=== PATIENT | female | born 1945 | race Hispanic/Latino ===

== ENCOUNTER → 2024-08-11 | Outpatient (CLI) | payer OTHER ==
--- NOTE | 2024-08-11 11:41 | HMCIMG ---
US ABDOMINAL COMPLETE REASON: CALCULUS OF BILE DUCT COMPARISON: None FINDINGS: There is normal sonographic appearance of the liver. There are no focal mass lesions. The liver is not enlarged.There is a normal-appearing gallbladder. The common duct appears mildly enlarged at 8 mm. The intrahepatic biliary tree does not appear distended. Kidneys appear normal in size and appearance. There is no evidence of mass, stone or hydronephrosis. Spleen appears normal. Aorta and inferior vena cava are unremarkable. The pancreas appears normal as well. IMPRESSION: 1. Common duct mildly dilated at 8 mm, etiology not identified 2. Otherwise unremarkable exam.
== END | disposition home or self-care (01) ==
LOC: RAH 09:54
PROVIDERS: ATTEND Internal Medicine
DX: K83.8 Other specified diseases of biliary tract (principal); K80.50 Calculus of bile duct without cholangitis or cholecystitis without obstruction
CPT/HCPCS: 76700

== ENCOUNTER 2025-01-21 11:05 | Observation (INO) | payer OTHER ==
[~2025-01-21] VITALS: Ht 152.4 cm; Wt 79.1 kg
[2025-01-21 11:40] LABS: INR <= 0.93 (0.85-1.15)
[2025-01-21 11:41] LABS: CREATINE KINASE, TOTAL 26.0 U/L (21-232); CREATININE 0.6 mg/dL (0.5-1.0); GLOMERULAR FILTR. RATE CALC 92.0 mL/min (>90); GLUCOSE,RANDOM 121.0 mg/dL (70-105); LDL DIRECT 65.0 mg/dL (0-99); SODIUM SERUM 141.0 mmol/L (136-145); UREA NITROGEN, BLOOD 11.0 mg/dL (7-18)
[2025-01-21 11:46] LABS: IMMATURE GRANULOCYTE ABSOLUTE 0.03 K/uL (0-1); NUCLEATED RED BLOOD CELLS 0.0 % (0.0-0.19); PLATELET COUNT (AUTO) 288 K/uL (130-400); RED BLOOD CELL COUNT(AUTO) 3.97 MIL/uL (4.00-5.50); RED CELL DISTRIBUTION WIDTH 12.6 % (11.0-15.5); WHITE BLOOD COUNT (AUTO) 4.9 K/uL (4.8-10.8)
--- NOTE | 2025-01-21 12:12 | EKG ---
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
[2025-01-21 12:35] LABS: APPEARANCE,URINE CLEAR (CLEAR); GLUCOSE, URINE (UA) NEGATIVE (NEGATIVE); LEUKOCYTE ESTERASE ,URINE NEGATIVE Leu/uL (NEGATIVE); NITRATE,URINE NEGATIVE (NEGATIVE); OCCULT BLOOD,URINE NEGATIVE (NEGATIVE)
[2025-01-21 12:37] LABS: ADD UA MICROSCOPIC NO
--- NOTE | 2025-01-21 13:30 | NUR ---
BEDSIDE SWALLOW EVAL COMPLETED. Recommend regular solids, thin liquids and pills whole with liquids as tolerated. Compensatory strategies: 1. sit upright during oral intake CARBON BLOCKS PRESS OPERATOR reviewed results and recommendations with patient and nurse Danyel. CARBON BLOCKS PRESS OPERATOR educated patient on risks and consequences of aspiration. Speech therapy not warranted at this time. All questions answered. Addendum: 01/21/[address]ONNATHAN BARKER Amended: Links added.
--- NOTE | 2025-01-21 13:35 | NUR ---
COGNITIVE-LINGUISTIC EVALUATION COMPLETED. WITHIN FUNCTIONAL LIMITS. EVALUATION: Pt AAOX4. SPEECH, LANGUAGE, AND COGNITIVE LINGUISTICS SKILLS ARE WITHIN FUNCTIONAL LIMITS. Pt REQUESTS WANTS AND NEEDS INDEPENDENTLY WITH CLEAR SPEECH INTELLIGIBILITY DESPITE VERY MINIMAL RIGHT SIDED FACIAL DROOP REPORTED BY FRIEND PRESENT AT TIME OF VISIT HOWEVER FUNCTIONAL. Pt COMMUNICATING AT CONVERSATIONAL LEVEL WITH NO DEFICITS IDENTIFIED AT THIS TIME. Pt COMPLETED COGNITIVE-LINGUISTIC EVALUATION WITH CORRECT AND TIMELY ANSWERS. SPEECH THERAPY NOT WARRANTED. ALL QUESTIONS ANSWERED AT THIS TIME. VITAMIN MANAGER REVIEWED RESULTS AND RECOMMENDATIONS WITH PATIENT AND NURSE MARYSOL. Addendum: 01/21/[address]ONNATHAN BARKER Amended: Links added.
--- NOTE | 2025-01-21 14:14 | HMCIMG ---
EXAM: CR Chest, 1 View. CLINICAL HISTORY: cp COMPARISON: None provided. FINDINGS: LUNGS: There is no mass, infiltrate, or acute pulmonary abnormality. PLEURAL SPACES: No pleural effusion or pneumothorax. MEDIASTINUM: The cardiomediastinal silhouette is within normal limits. BONES: No aggressive appearing osseous lesion seen. IMPRESSION: No acute cardiopulmonary pathology is evident. /[place]
--- NOTE | 2025-01-21 15:26 | ERN ---
ED Note History of Present Illness Stated Complaint: CHEST PAIN Chief Complaint: Weakness Time Seen by MD: 11:15 Dictation: 79-year-old female presenting to the emergency department with chest pain and numbness to the right arm and face started last night worsened this morning also feels anxious no abdominal pain or vomiting. Allergies: Coded Allergies: aspirin (Unverified Allergy, Intermediate, 01/21/25) Past Medical History Past Medical History: High Cholesterol, Hypertension Surgical History: None Review of System Dictation Constitutional: Negative for fever,chills, and weight loss Eyes: Negative for injury, pain,redness, and discharge ENT: Negative for injury,pain or swelling Cardiovascular: per HPI Respiratory: Negative for shortness of breath, cough, and wheezing, Abdomen/GI: Negative for abdominal pain, nausea, vomiting, diarrhea, and constipation Back: Negative for injury and pain : Negative for injury, bleeding and discharge MS/Extremity: Negative for injury and deformity Skin: Negative for rash, and discoloration Neuro: per HPI Initial Vital Sign VS Vital Signs Date Time Temp Pulse Resp B/P (MAP) Pulse Ox O2 Delivery O2 Flow Rate FiO2 01/21/25 11:10 98.6 77 20 160/95 99 0 01/21/25 12:16 Room Air* 21 Physical Exam Dictation General: awake, alert, appears anxious Head/Face: Normocephalic, atraumatic Eyes: PERRL, EOMI, vision at baseline ENT: oral cavity clear, TMs clear, no signs of infection Neck: Trachea midline, supple, no nuchal rigidity Cardiovascular: RRR, normal S1/S2, No MRGs, no JVD Respiratory: CTAB, no respiratory distress, No rales or wheezes Abdomen: Soft, non-tender, non-distended, normal bowel sounds, no guarding or rebound. Skin: Warm, dry, normal turgor, no rash MS/Extremity: Pulses equal, no cyanosis, neurovascular intact, FROM Neuro: COAx4, GCS 15, strength 5/5, CN 2-12 intact, normal cerebellar exam, normal gait, Psych: Normal behavior, mood, and affect normal NIHSS 2 for paresthesias. Results (Laboratory/Radiology) Laboratory/Radiology Laboratory Tests Test 01/21/25 11:22 01/21/25 11:25 01/21/25 12:21 Whole Blood Glucose 128 MG/DL (70-110) H White Blood Count 4.9 K/uL (4.8-10.8) Red Blood Count 3.97 MIL/uL (4.00-5.50) L Hemoglobin 13.1 g/dL (12.0-16.0) Hematocrit 39.2 % (36-48) Mean Corpuscular Volume 98.7 fL (79-99) Mean Corpuscular Hemoglobin 33.0 pg (27.0-33.0) Mean Corpuscular Hemoglobin Concent 33.4 g/dL (32.0-36.0) Red Cell Distribution Width 12.6 % (11.0-15.5) Platelet Count 288 K/uL (130-400) Mean Platelet Volume 9.8 fL (7.5-10.5) Immature Granulocyte % (Auto) 0.6 % (0-1) Neutrophils (%) (Auto) 59.6 % (40.0-77.0) Lymphocytes (%) (Auto) 32.2 % (21.0-51.0) Monocytes (%) (Auto) 6.4 % (3.0-13.0) Eosinophils (%) (Auto) 1.0 % (0.0-8.0) Basophils (%) (Auto) 0.2 % (0.0-5.0) Neutrophils # (Auto) 2.9 K/uL (1.8-7.7) Lymphocytes # (Auto) 1.6 K/uL (1.0-4.8) Monocytes # (Auto) 0.3 K/uL (0.1-1.0) Eosinophils # (Auto) 0.05 K/uL (0.00-0.70) Basophils # (Auto) 0.01 K/uL (0.00-0.20) Absolute Immature Granulocyte (auto 0.03 K/uL (0-1) Nucleated Red Blood Cells 0.0 % (0.0-0.19) Prothrombin Time 9.9 SEC (9.6-11.6) Prothromb Time International Ratio <= 0.93 (0.85-1.15) Activated Partial Thromboplast Time 27.2 SEC (26.3-35.5) Sodium Level 141 mmol/L (136-145) Potassium Level 4.0 mmol/L (3.5-5.1) Chloride Level 103 mmol/L (101-111) Carbon Dioxide Level 30 mmol/L (21-32) Blood Urea Nitrogen 11 mg/dL (7-18) Creatinine 0.6 mg/dL (0.5-1.0) Glomerular Filtration Rate Calc 92 mL/min (>90) Random Glucose 121 mg/dL (70-105) H Total Calcium 9.4 mg/dL (8.5-10.1) Total Creatine Kinase 26 U/L (21-232) Troponin I High Sensitivity 7 ng/L (4-50) LDL Cholesterol 65 mg/dL (0-99) Urine Color COLORLESS (YELLOW) Urine Appearance CLEAR (CLEAR) Urine pH 7.5 (5.0-8.0) Urine Specific [place] 1.006 (1.001-1.031) Urine Protein NEGATIVE mg/dL (NEGATIVE) Urine Glucose (UA) NEGATIVE mg/dL (NEGATIVE) Urine Ketones NEGATIVE mg/dL (NEGATIVE) Urine Occult Blood NEGATIVE (NEGATIVE) Urine Nitrate NEGATIVE (NEGATIVE) Urine Bilirubin NEGATIVE mg/dL (NEGATIVE) Urine Urobilinogen 0.2 mg/dL (0.2-1.0) Urine Leukocyte Esterase NEGATIVE Juan Alberto/uL Labs Reviewed?: Yes EKG Comment: HR 75, NSR, normal intervals, no STEMI ED Course ED Course Orders Procedure Category Date Status Time Bedside Swallow Eval ST 01/21/25 Transmitted 11:14 Cbc With Differential LAB 01/21/25 Complete 11:14 Prothrombin Time With LAB 01/21/25 Complete INR 11:14 Partial LAB 01/21/25 Complete Thromboplastin Time 11:14 Ct Head/Brain W/O CT 01/21/25 Taken Contrast 11:14 Chest 1vw RAD 01/21/25 Resulted 11:14 12 Lead Ekg Tracing- EKG 01/21/25 Complete Technical 11:14 Creatine Kinase, Total LAB 01/21/25 Complete 11:14 Ldl Direct LAB 01/21/25 Complete 11:14 Troponin I High LAB 01/21/25 Complete Sensitivity 11:14 Urinalysis Profile LAB 01/21/25 Complete 11:14 Bedside Glucose CPOE 01/21/25 Transmitted Fingerstick 11:14 Pulse Ox(Continuous) RT 01/21/25 Transmitted 11:14 Complete Nih Stroke CPOE 01/21/25 Transmitted Scale 11:14 Basic Metabolic Panel LAB 01/21/25 Complete 11:14 Vital Signs Date Time Temp Pulse Resp B/P (MAP) Pulse Ox O2 Delivery O2 Flow Rate FiO2 01/21/25 14:34 66 14 156/67 97 Room Air* 0 21 01/21/25 12:16 76 14 184/81 98 Room Air* 0 21 01/21/25 11:10 98.6 77 20 160/95 99 0 Medical Decision Making MDM MDM: Differential diagnosis: Rationale: Tests considered and ordered secondary to shared decision making include: labs, ECG and radiology Previous outside records reviewed: Old ER visits. Risk of complication and/or morbidity or mortality of patient management: None Medications-Per medication reconciliation Need for hospitalization: Patient does meet criteria for hospitalization. Need for emergency major/minor surgery: No There are no social concerns with this patient. Prescription drug management Prescriptions will include symptomatic care Patient's prior external medical records from other ER visits were reviewed by me as indicated. Prior testing and results from previous visits were reviewed. Prior tests were taken into account with medical decision making and resource utilization, independent historian/historians were used to obtain complete medical history. I independently interpreted the test that were performed, results were reviewed by me and considered findings on radiology if ordered. Medical management and examination interpretation discussions were had by me with other qualified healthcare professionals as indicated for the patient's care. 79-year-old female with chest pain and paresthesias to right in face, stable exam initial workup negative admitting for further care and evaluation. NIH STROKE SCALE: NIH STROKE SCALE Response (Comments) Value Level of Consciousness Alert 0 Ask patient month and their age Answers both correct 0 Command to open eyes, make fist and let go Obeys both correct 0 Best gaze (horizontal eye movement) Normal 0 Visual Field Testing Partial Hemianopia 1 Facial Paresis Normal / Symmetrical 0 Motor Function - Left Arm Normal 0 Motor Function - Right Arm Normal 0 Motor Function - Left Leg Normal 0 Motor Function - Right Leg Normal 0 Limb Ataxia No Ataxia 0 Sensory-pin prick to arms, legs, trunk and face Mild to Moderate Decrease 1 Best Language (describe picture, name items and read) No Aphasia 0 Dysarthria (read several words) Normal Articulation 0 Extinction and Inattention Normal 0 Total DX & DISP Disposition: Inpatient Departure Impression: Primary Impression: Unstable angina Additional Impression: Paresthesia Condition: Stable Referrals: ANNA MEEHAN MD (PCP) GARFIELD SANCHES MD Jan 21, 2025 15:26
[2025-01-21 18:15] LABS: CREATINE KINASE, TOTAL 36.0 U/L (21-232)
[2025-01-21] MEDS: ENOXAPARIN SODIUM 80 MG/0.8 ML SQ SCH (20:35)
[2025-01-21 21:34] LABS: CREATINE KINASE, TOTAL 26.0 U/L (21-232)
[2025-01-22] VITALS (7 sets, daily range): BP systolic 117–149; BP diastolic 61–94; PULSE 58–68; RESP 16–21; TEMP 97.6–98.7; O2SAT 96–98
[2025-01-22] MEDS ORDERED: PANT40TA PO (02:39)
[2025-01-22] MEDS ORDERED: ROSUVASTATIN CALCIUM PO (02:39)
[2025-01-22] MEDS ORDERED: AMLO2.5T4 PO (02:39)
[2025-01-22] MEDS ORDERED: LISI10TA24 PO (02:39)
--- NOTE | 2025-01-22 05:12 | HMCIMG ---
EXAM: MR Brain Without IV Contrast CLINICAL HISTORY: Right arm and leg weakness. TECHNIQUE: Multiplanar multi-sequence MRI of the brain. CONTRAST: None. COMPARISON: CT brain of the same date. FINDINGS: Mild generalized brain atrophy. There are multiple discrete as well as confluent T2 and FLAIR hyperintensities in the subcortical and periventricular white matter of the bilateral cerebral hemispheres without restricted diffusion. No evidence of acute cortical infarction, hemorrhage, mass or mass effect. The ventricular system is normal in size, shape, and contour. No hydrocephalus. Partial empty sella. Bilateral basal ganglia, internal capsules and thalami are normal. The brainstem is normal. No abnormal extra-axial fluid collection is present. The marrow signal within the skull base and calvarium is intact. Hyperostosis frontalis interna. Mild bilateral ethmoid sinusitis. The remaining paranasal sinuses and mastoid air cells are clear. IMPRESSION: No acute intracranial abnormality or mass. Mild generalized brain atrophy. Severe chronic small vessel ischemic disease. Partial empty sella. Mild bilateral ethmoid sinusitis. No significant interval change from the CT brain of the same date, within the limitations of cross-modality comparison. /[place]
--- NOTE | 2025-01-22 08:29 | NUR ---
ROUND DR. GIRARD AT BEDSIDE. ORDRED TO RSUME ALL HOME MEDS. SERENITY SCAN AND CAN START HEART HEALTHY DIET AFTER SERENITY SCAN.
[2025-01-22] MEDS: amLODIPine 2.5 MG TAB PO SCH (09:02)
[2025-01-22] MEDS: LISINOPRIL 10 MG TABLET PO SCH (09:02)
--- NOTE | 2025-01-22 09:03 | NUR ---
MORNING MEDICATIONS CALLED NUCLEAR MEDICINE IF OKAY TO GIVE MORNING MEDS DUE T BEING NPO FOR SERENITY SCAN. STATES YES. MORNING MEDS GIVEN.
[2025-01-22 09:52] LABS: CREATINE KINASE, TOTAL 20.0 U/L (21-232)
[2025-01-22] MEDS ORDERED: REGADENOSON 0.4 MG/5 ML PF SYG IVP ONE (10:35)
--- NOTE | 2025-01-22 12:14 | NUR ---
DCP: HOME Pt currently lives with sps in their own home. Pt does not have any DME, home health, or provider services at this time. Pt is able to complete ADLs independently. PCP is Dr. Read and uses Meg for any RX needs. At [place] pt will return home and family/friend can assist with transportation. Addendum: 01/22/25 at 1216 by ZAHIDA NAVA SS Amended: Links added.
--- NOTE | 2025-01-22 16:20 | HMCSR ---
APPROVED REPORT Height: 5 ft 0in Weight: 174 lbs TEST INDICATIONS Chest Pain The imaging protocol used to acquire images was Rest Tc-99m/stress Tc-99m 1 day Consent: The procedure was explained and understood by the patient. Informerd consent was witnessed Yobani Sanders RN First, low dose rest was performed then high dose stress. RESTING DATA: The resting ekg shows: NSR Rest SPECT myocardial perfusion imaging was performed in supine position minutes following the intra venous injection of 10 mCi of Tc-99 Sestamibi. Time of rest injection: Date: 01/22/2025 PHARMACOLOGIC STRESS: Pharmacologic stress test was performed by injecting regadenoson 0.4 mg IV push followed by the intra venous injection of 29 mCi of Tc-99 Sestamibi. Time of stress injection: Date: 01/22/2025 Heart Rate at time of stress injection: 60 bpm. Gated Stress SPECT was performed 60 minutes after stress injection. The images were gated to evaluate regional wall motion and calculate left ventricular ejection fracti on. STRESS DETAILS Reason for Termination: Infusion complete Stress Symptoms: Throat Discomfort, Anxiety, headache Max HR Achieved: 104 bpm % of APMHR Achieved: 85 Max Blood Pressure: 164/76 mmHg Stress ECG: NSR Study quality was good. Lung uptake was Normal. Artifact: No artifact IMPRESSION Normal pharmacologic nuclear stress test. Conclusion there is normal perfusion. TID 1.25. LVEF 65%
--- NOTE | 2025-01-22 22:19 | HP ---
HISTORY OF PRESENT ILLNESS: The patient of Dr. Read, came to the Emergency Room complaining of chest pain with numbness to the right side of the face and arm that was worsening the night before admission. The patient referred as the chest pain has been left side and lasted for a few hours at rest. ALLERGIES: TO ASPIRIN. PAST MEDICAL HISTORY: Hypertension and dyslipidemia. REVIEW OF SYSTEMS: No fever, chills, seizures or loss of consciousness. No diplopia, dysarthria, dysphonia or dysphagia. No cough, wheezes, or rhonchi. Left-sided chest pain at rest for a few hours, not alleviated with [id number] medications. No abdominal pain. No nausea, vomiting, or diarrhea. No dysuria, urgency, or frequency. No rashes, petechiae, or ecchymoses. No hallucinations, delusions, or suicidal ideations. MEDICATIONS: As indicated in the chart. PHYSICAL EXAMINATION: GENERAL: She is currently awake, alert, and oriented in person and place, not in distress. VITAL SIGNS: Blood pressure is 154/66, pulse 68, respiratory rate 15. HEENT: Normocephalic, atraumatic. LUNGS: Clear to auscultation. HEART: S1 and S2 are distant. ABDOMEN: Soft, nontender. EXTREMITIES: No clubbing or cyanosis. NEUROLOGIC: Cranial nerves 2 through 12 are grossly preserved. No gross motor sensory defect. LABORATORY DATA: WBC count 4.9, hemoglobin 13.1, platelets 288. Glucose 113. Troponin on admission was 7, repeated was 9. EKG reported on admission showed non-STEMI, normal sinus rhythm, 75 per minute. ASSESSMENT AND PLAN: * Chest pain. The patient with risk factors. She will be admitted and started on standard treatment. Scheduled her to have a Lexiscan stress test is negative on troponin level x 3. Resume home medications. * Right-sided face and arm paresthesias with negative workup so far. Continue to monitor. Follow up with Dr. Read in a.m. TID: [id number] RECEIPT: [id number]
[2025-01-23 00:37] VITALS: BP 133/76; PULSE 62; RESP 19; TEMP 98
[2025-01-23 04:05] VITALS: BP 121/65; PULSE 63; RESP 18; TEMP 97.7
--- NOTE | 2025-01-23 06:52 | NUR ---
ROUND DR. MEEHAN AT BEDSIDE. ORDERED EKG. PER CAN BE DISCHARGED AFTER. PRESCRIPTIONS WERE WRITTEN.
--- NOTE | 2025-01-23 07:56 | EKG ---
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
[2025-01-23 08:00] VITALS: BP 128/60; PULSE 65; RESP 17; TEMP 97.6
--- NOTE | 2025-01-23 08:19 | NUR ---
EKG DR. MEEHAN AWARE OF EKG RESULTS. STATES ITS OKAY TO DISCHARGE.
[2025-01-23 08:57] VITALS: O2SAT 98
--- NOTE | 2025-01-23 09:26 | NUR ---
DISCHARGE DC'D IV. NO COMPLICATIONS. AWARE TO FOLLOW UP WITH DR. MEEHAN IN 2-3 DAYS. NO CHEST PAIN OR OTHER SYMPTOMS AT THIS TIME. GAVE WRITTEN PRESCRIPTIONS FROM DR. MEEHAN. ANSWERED ALL QUESTIONS AT THIS TIME.
== END 2025-01-23 09:40 | disposition home or self-care (01) ==
LOC: EDH 11:05 → EDHIP 15:40 → 3CH 01-22 02:22
PROVIDERS: ADMIT Internal Medicine; ATTEND Internal Medicine
DX: R07.9 Chest pain, unspecified (principal); R20.2 Paresthesia of skin; R20.0 Anesthesia of skin; I20.0 Unstable angina; I10 Essential (primary) hypertension; E78.00 Pure hypercholesterolemia, unspecified; Z79.899 Other long term (current) drug therapy
CPT/HCPCS: 96372 ×3; 99285; 82550 ×4; 83721; 84484 ×4; 80048; 85025; 85610; 85730; 82948 ×5; 81003; 36415 ×2; 71045; 70450; 70551; 92522; 92610; 93005 ×2; 93017; 78452; G0378 ×42; J1650 ×4; J2785; A9500 ×2